=== PATIENT | male | born 1965 | race Caucasian/White ===

== ENCOUNTER 2020-01-13 09:30 | Inpatient (IN) ==
--- NOTE | 2020-01-13 10:13 | ERNOTE ---
Dyspnea - Date Date of Service: 01/13/20 - General Presenting Symptoms: shortness of breath Time Seen by Provider: 01/13/20 10:12 Source: patient, RN notes reviewed, old records Exam Limitations: no limitations - Immun/Allergies/Home Medications Immunizations: IMMUNIZATION HX Immunizations Up to Date Yes Allergies/Adverse Reactions: Allergies pregabalin [From Lyrica] Allergy (Mild, Verified 01/13/20 09:34) Swelling Home Medications: HOME MEDICATIONS Lisinopril [Zestril] 10 mg PO DAILY 02/04/19 [Last Taken Unknown] metformin 500 mg tablet,extended release 24 hr 1,000 mg PO BID tab 02/05/19 [Last Taken Unknown] turmeric root extract 500 mg capsule 500 mg PO DAILY 02/05/19 [Last Taken Unknown] vitamin B12 500 mcg-folic acid 400 mcg tablet 1 tab PO DAILY 02/05/19 [Last Taken Unknown] clindamycin HCl 300 mg capsule 300 mg PO TID 14 Days #42 cap 09/24/19 [Last Taken Unknown] tramadol 50 mg tablet 50 mg PO Q6H PRN #14 tab 09/30/19 [Last Taken Unknown] levofloxacin 750 mg tablet 750 mg PO DAILY 14 Days #14 tab 11/13/19 [Last Taken Unknown] oxyCODONE HCL [Oxycodone] 5 mg PO Q6H PRN 01/12/20 [Last Taken Unknown] - History of Present Illness Narrative: Nigel is a 54-year-old male who returns to the emergency department with shortness of breath. I saw the patient yesterday. He has been having problems with dyspnea for approximately 4 months. He has been treated for a diabetic ulcer on his left great toe for the past 6 months. He has been on numerous antibiotics. He was most recently prescribed Augmentin and doxycycline, which he stopped taking 12 days ago because he felt that they were making him worse. He reports having an occasional cough. He has not had fevers. His shortness of breath is worse when he lays down flat. He denies any swelling in his lower extremities. He is a former smoker. Yesterday he was found to have an elevated BNP at 8700. His troponin was slightly elevated at 0.098. He also had an elevated d-dimer. CTA chest was done and showed no evidence of pulmonary emboli, but it did show a right middle and lower lobe pneumonia, as well as small bilateral pleural effusions and significant calcification in his coronary arteries. The patient was extremely overwhelmed with this information. He did not wish to be admitted to the hospital yesterday because he had things to take care of before he could do that. He ultimately signed out AMA but stated that he plans to return today for treatment. Associated Symptoms-Dyspnea: Reports: cough. Denies: fever/chills, chest pain/discomfort, leg/calf pain, ankle/leg swelling Prior Treatment: Reports: recently seen Review of Systems - Review of Systems Constitutional: Present: recent illness, fatigue. Absent: fever, chills EYE: Present: no symptoms reported ENT: Present: no symptoms reported Respiratory: Present: shortness of breath, cough, orthopnea Cardiology: Absent: chest pain, edema, claudication Gastrointestinal/Abdominal: Absent: nausea, vomiting, diarrhea, abdominal pain Genitourinary: Absent: dysuria, decreased urinary output Musculoskeletal: Present: no symptoms reported Skin: Absent: rash, lesions Neurological: Absent: headache, dizziness/light-headedness Endocrine: Present: no symptoms reported Hematologic/Lymphatic: Absent: easy bruising, easy bleeding Psych: Present: no symptoms reported 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, with fat layer exposed (Chronic) great toe Diabetes mellitus Onset Date: 2005 Exostosis of toe Hyperlipidemia Onset Date: 2005 Hypertension Onset Date: 1999 Osteomyelitis Polyneuropathy Onset Date: Unknown Smoker Onset Date: 1985 Family History: Family History (Last Reviewed 01/13/20 @ 12:28 by Nay Romano NP) Father Type 2 diabetes mellitus Coronary artery disease Mother Healthy adult Alive and well Grandfather Cancer lung Social History: (Last Reviewed 01/13/20 @ 12:28 by Nay Romano NP) Social History: Marital status: household members: spouse 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[employer]: No Tobacco: Smoking Status: Current some day smoker tobacco type: cigarettes Smoking cigarettes per day: 20.0 Smoking packs per day: 1 Alcohol: alcohol intake: never alcohol intake frequency: a few times a week Substance Use: substance use type: does not use Dietary Habits: caffeine: Yes Type: coffee Physical Exam - Physical Exam General Appearance: Present: wd/wn, alert, other - In no acute distress but appears to not feel well, mild dyspnea at rest Head Exam: Present: normal inspection Eye Exam: Normal inspection: bilateral Neck: Present: normal inspection, nontender, supple, full range of motion Respiratory: Present: no respiratory distress, lungs clear, accessory muscle use - mild dyspnea, expiration (prolonged) Cardiovascular/Chest: Present: regular rate, rhythm, no murmur Extremity Exam: Present: normal inspection, non-tender, normal range of motion, no edema Neurological Exam: Present: alert, oriented, normal mood/affect, no motor/sensory deficits Skin Exam: Present: warm/dry, pallor, other - Nearly healed wound to left great toe Progress - Results and Orders Patient's Lab Results:: I have reviewed the patient's lab results. - Vital Signs Patient's Vital Signs:: I have reviewed the patient's vital signs. Vital Signs: Vital Signs 01/13/20 09:44 Temperature 35.7 C L Pulse Rate 101 H Respiratory Rate 20 Blood Pressure 115/83 O2 Sat by Pulse Oximetry 96 - EKG EKG #1 EKG: NSR, unchanged from - 01/12/20 EKG read: Reviewed by me - Progress/Reassessment Chief Complaint: Dyspnea Progress:: Unchanged Plan - Plan Plan: Troponin has slightly increased since yesterday from 0.098 to 0.108. EKG is unchanged. B[place] 3700 [place] 27332. His WBC and lactic acid are n ormal. Along with his prolonged treatment with multiple antibiotics for his toe, a bacterial pneumonia would be unlikely but blood cultures are pending. The patient is afebrile without any significant cough. He is negative for COVID-19. Dr. Chacko was contacted and agreed to admit the patient to observation. Lasix 40 mg IV ordered prior to transfer to med/surg. The patient is in agreement with staying in the hospital. Departure Clinical Impression: New onset of congestive heart failure Pneumonia Qualifiers: Pneumonia type: due to unspecified organism Laterality: right Lung location: unspecified part of lung Qualified Code(s): J18.9 - Pneumonia, unspecified organism - Departure Disposition: Still a patient Condition: Stable
[2020-01-13 10:55] LABS: Hematocrit 43.5 % (42.0-52.0); Hemoglobin 14.1 gm/dL (13.5-18.0); Mean Cell Volume 94.4 fl (78-100); Mean Corpuscular Hemoglobin 30.6 pg (27-31); Mean Corpuscular Hgb Conc 32.4 g/dl (32-36); Mean Platelet Volume 11.6 fl (8-11.3); Neutrophil # 6.1 K/mm3 (1.3-6.0); Neutrophil % 66.3 % (42-75.0); Platelet Count 217 K/mm3 (150-450); Red Blood Count 4.61 M/mm3 (4.7-6.0); Red Cell Distribution Width 16.4 % (11.5-14.0); White Blood Count 9.2 K/mm3 (4.0-10.5)
[2020-01-13 11:08] LABS: Albumin * 3.2 gm/dl (3.4-5.0); Anion Gap 16.3 mmol/L (6.8-13.8); Bilirubin, Total 0.5 mg/dL (0.0-1.1); Ca. Corrected For Albumin 9.2 mg/dL (8.4-10.2); Calcium * 8.9 mg/dL (7.9-10.9); Carbon Dioxide 21.2 mmol/L (24-32.6); Potassium 3.5 mmol/L (3.4-4.6); Total Protein 7.8 gm/dL (6.2-8.2); Troponin I 0.108 ng/mL (0.00-0.10)
[2020-01-13] MEDS ORDERED: FUROSEMIDE 10 MG/ML VIAL IV ONE ×2 (11:59→18:00)
[2020-01-13] MEDS: oxyCODONE HCL 5 MG TABLET PO PRN (21:00)
[2020-01-14] MEDS ORDERED: DILTIAZEM HCL 5 MG/ML VIAL IV ONE ×2 (06:05→08:10)
--- NOTE | 2020-01-14 08:29 | HP ---
Chief Complaint - Chief Complaint Date of Service: 01/13/20 Time of Service: 13:15 Chief Complaint: Shortness of breath History of Present Illness: Zenon is a 54 yo male who presented to the [facility] ER with shortness of breath. He reports shortness of breath present for 4 months but gradually getting worse. Shortness of breath is worse with laying down. He reports minimal lower extremity edema. He has a history of uncontrolled diabetes Type 2 with diabetic neuropathy and diabetic foot ulcers. He has been treated by wound clinic and podiatry with numerous antibiotics over the past few months. He reports his last antibiotic was 2 weeks ago. He reports he feet are currently doing well and wounds have healed. He denies chest pain, fever, chills, nausea, or vomiting. 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, with fat layer exposed (Chronic) great toe Diabetes mellitus Onset Date: 2005 Exostosis of toe Hyperlipidemia Onset Date: 2005 Hypertension Onset Date: 1999 Osteomyelitis Polyneuropathy Onset Date: Unknown Smoker Onset Date: 1985 Family History: Family History (Last Reviewed 01/13/20 @ 12:28 by Nay Romano NP) Father Type 2 diabetes mellitus Coronary artery disease Mother Healthy adult Alive and well Grandfather Cancer lung Social History: (Last Reviewed 01/13/20 @ 12:28 by Nay Romano NP) Social History: Marital status: household members: spouse 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[employer] Service: No Tobacco: Smoking Status: Current some day smoker tobacco type: cigarettes Smoking cigarettes per day: 20.0 Smoking packs per day: 1 Alcohol: alcohol intake: never alcohol intake frequency: a few times a week Substance Use: substance use type: does not use Dietary Habits: caffeine: Yes Type: coffee Review Of Systems (GEN) - Review of Systems Generalized/Overall Review: Absent: Weakness, Chills, Fever EENTM: Present: No Symptoms Reported Respiratory: Present: Cough, Shortness of Breath, Orthopnea, Wheezing Cardiac: Present: Edema. Absent: Chest Pain, Palpitations, Syncope Abdominal: Absent: Nausea, Vomiting Genitourinary: Absent: Burning, Itching, Urgency Musculoskeletal: Absent: Joint Pain, Back Pain Neurological: Absent: Headache, Anxiety Skin: Absent: Lesions, Rash Immunizations: IMMUNIZATION HX Immunizations Up to Date Yes Allergies/Adverse Reactions: Allergies Allergy/AdvReac Type Severity Reaction Status Date / Time pregabalin [From Lyrica] Allergy Mild Swelling Verified 01/13/20 09:34 Home Medications: HOME MEDICATIONS Lisinopril [Zestril] 10 mg PO DAILY 02/04/19 [Last Taken Unknown] metformin 500 mg tablet,extended release 24 hr 1,000 mg PO BID tab 02/05/19 [Last Taken Unknown] turmeric root extract 500 mg capsule 500 mg PO DAILY 02/05/19 [Last Taken Unknown] vitamin B12 500 mcg-folic acid 400 mcg tablet 1 tab PO DAILY 02/05/19 [Last Taken Unknown] Exam - Exam Vital Signs: Vital Signs - Last Taken Selected Entries 01/13/20 12:20 Temperature 36.4 C Pulse Rate 102 H Respiratory Rate 16 Blood Pressure 126/95 H O2 Sat by Pulse Oximetry 97 Oxygen Delivery Method Room Air Constitutional: Present: Alert, Oriented x3, Cooperative ENT Exam: Present: hearing grossly normal Eye Exam: bilateral eye: normal inspection Respiratory: Present: no respiratory distress, crackles Cardiovascular/Chest: Present: regular rate, rhythm, no edema, no murmur Peripheral Pulses: radial (R): 2+, radial (L): 2+ Abdomen: Present: Normal bowel sounds, soft, nontender, nondistended Extremity: Present: normal inspection Skin Exam: Present: normal color, warm/dry, no cyanosis Appearance: Present: appropriate appearance, appropriate insight Eye contact: Present: cooperative, good eye contact, normal speech Thoughts: Present: normal thought pattern, no apparent hallucination Diagnostic Studies: Abnormal Lab Results 01/13/20 01/13/20 Range/Units 10:40 10:40 RBC 4.61 L (4.7-6.0) M/mm3 RDW 16.4 H (11.5-14.0) % MPV 11.6 H (8-11.3) fl Neutrophils # 6.1 H (1.3-6.0) K/mm3 Carbon Dioxide 21.2 L (24-32.6) mmol/L Anion Gap 16.3 H (6.8-13.8) mmol/L Random Glucose 170 H (70-110) mg/dL Troponin I 0.108 H (0.00-0.10) ng/mL B-Natriuretic Peptide 03433 H (5-140) pg/mL Albumin 3.2 L (3.4-5.0) gm/dl Laboratory Results WBC 9.2 K/mm3 (4.0-10.5) 01/13/20 10:40 RBC 4.61 M/mm3 (4.7-6.0) L 01/13/20 10:40 Hgb 14.1 gm/dL (13.5-18.0) 01/13/20 10:40 Hct 43.5 % (42.0-52.0) 01/13/20 10:40 MCV 94.4 fl (78-100) 01/13/20 10:40 MCH 30.6 pg (27-31) 01/13/20 10:40 MCHC 32.4 g/dl (32-36) 01/13/20 10:40 RDW 16.4 % (11.5-14.0) H 01/13/20 10:40 Plt Count 217 K/mm3 (150-450) 01/13/20 10:40 MPV 11.6 fl (8-11.3) H 01/13/20 10:40 Immature Gran % (Auto) 0.30 % (0.001-0.429) 01/13/20 10:40 Immature Gran # (Auto) 0.03 K/mm3 (0.000-0.0310) 01/13/20 10:40 Neutrophils % 66.3 % (42-75.0) 01/13/20 10:40 Lymphocytes % 25.2 % (20-51) 01/13/20 10:40 Monocytes % 6.0 % (0.0-9) 01/13/20 10:40 Eosinophils % 1.7 % (0.0-3.0) 01/13/20 10:40 Basophils % 0.5 % (0.0-1.0) 01/13/20 10:40 Nucleated RBC % 0.0 k/mm3 (0-1) 01/13/20 10:40 Neutrophils # 6.1 K/mm3 (1.3-6.0) H 01/13/20 10:40 Lymphocytes # 2.31 k/mm3 (1.5-3.5) 01/13/20 10:40 Monocytes # 0.6 k/mm3 (0.0-1.0) 01/13/20 10:40 Eosinophils # 0.2 k/mm3 (0.0-0.7) 01/13/20 10:40 Absolute Basophils 0.1 k/mm3 (0.0-0.1) 01/13/20 10:40 Sodium 138 mmol/L (132-142) 01/13/20 10:40 Plasma Sodium 139 mmol/L (130-142) 01/13/20 10:40 Potassium 3.5 mmol/L (3.4-4.6) 01/13/20 10:40 Chloride 104 mmol/L (97-106) 01/13/20 10:40 Carbon Dioxide 21.2 mmol/L (24-32.6) L 01/13/20 10:40 Anion Gap 16.3 mmol/L (6.8-13.8) H 01/13/20 10:40 BUN 15 mg/dL (6-23) 01/13/20 10:40 Creatinine 1.00 mg/dL (0.4-1.4) 01/13/20 10:40 Est GFR (Non-Af Amer) 83 mL/min (60-130) 01/13/20 10:40 BUN/Creatinine Ratio 15.0 (9.0-21.6) 01/13/20 10:40 Random Glucose 170 mg/dL (70-110) H 01/13/20 10:40 Lactic Acid, Venous 1.6 mmol/L (0.4-2.0) 01/13/20 10:40 Calcium 8.9 mg/dL (7.9-10.9) 01/13/20 10:40 Calcium Adj for Albumin 9.2 mg/dL (8.4-10.2) 01/13/20 10:40 Total Bilirubin 0.5 mg/dL (0.0-1.1) 01/13/20 10:40 AST 25 U/L (0-48) 01/13/20 10:40 ALT 30 U/L (19-67) 01/13/20 10:40 Alkaline Phosphatase 74 U/L (50-170) 01/13/20 10:40 Troponin I 0.108 ng/mL (0.00-0.10) H 01/13/20 10:40 B-Natriuretic Peptide 25103 pg/mL (5-140) H 01/13/20 10:40 Total Protein 7.8 gm/dL (6.2-8.2) 01/13/20 10:40 Albumin 3.2 gm/dl (3.4-5.0) L 01/13/20 10:40 SARS-CoV-2 (PCR) Not detected (NotDetected) 01/13/20 Unknown Assessment/Plan - Narrative Narrative: Zenon is a 54 yo male to be admitted for shortness of breath that I suspect to be related to Acute CHF. He does not have a history of CHF. BNP is 11,000 and chest imaging done yesterday show bilateral effusions. Will treat with IV lasix 40mg. Will repeat chest xray after diuresis. He is not needing oxygen on admission, will admit to observation. Plan to discharge after one midnight following diuresis if he is improved. He does not have fever, leukocytosis to suggest pneumonia. Will not start antibiotics at this time as I am not convinced of a pneumonia. If there is more evidence of pneumonia he may need strong coverage for antibiotics due to his history of recent numerous antibiotics used to treat diabetic foot ulcer. - Assessment/Plan (1) Acute CHF Problem: Acute Qualifiers: Heart failure type: unspecified Qualified Code(s): I50.9 - Heart failure, unspecified (2) Diabetes mellitus type 2 in nonobese Problem: Acute
[2020-01-14 08:37] LABS: Hematocrit 43.9 % (42.0-52.0); Hemoglobin 14.1 gm/dL (13.5-18.0); Mean Cell Volume 93.2 fl (78-100); Mean Corpuscular Hemoglobin 29.9 pg (27-31); Mean Corpuscular Hgb Conc 32.1 g/dl (32-36); Neutrophil # 5.8 K/mm3 (1.3-6.0); Platelet Count 213 K/mm3 (150-450); Red Blood Count 4.71 M/mm3 (4.7-6.0); Red Cell Distribution Width 16.1 % (11.5-14.0); White Blood Count 8.9 K/mm3 (4.0-10.5)
[2020-01-14] MEDS ORDERED: AMIODARONE HCL 150 MG/100 ML PIGGYBACK IV ONE (08:40)
[2020-01-14] MEDS ORDERED: AMIODARONE HCL 900 MG in DEXTROSE 5 % IN WATER 500 ML IV SCH ×2 (08:41)
[2020-01-14] MEDS ORDERED: LISINOPRIL 10 MG TABLET PO SCH (09:00)
[2020-01-14 09:20] LABS: Albumin * 2.9 gm/dl (3.4-5.0); Anion Gap 14.6 mmol/L (6.8-13.8); BUN/Creatinine Ratio 13.2 (9.0-21.6); Bilirubin, Total 0.7 mg/dL (0.0-1.1); Ca. Corrected For Albumin 9.4 mg/dL (8.4-10.2); Calcium * 8.8 mg/dL (7.9-10.9); Carbon Dioxide 23.8 mmol/L (24-32.6); Potassium 3.4 mmol/L (3.4-4.6); TSH * 3.209 uIU/mL (0.358-3.74); Total Protein 7.3 gm/dL (6.2-8.2)
[2020-01-14 09:32] LABS: Troponin I 0.088 ng/mL (0.00-0.10)
[2020-01-14] MEDS ORDERED: NORMAL SALINE 500 ML IV PRN (10:38)
[2020-01-14] MEDS: oxyCODONE HCL 5 MG TABLET PO PRN ×2 (11:07→20:12)
[2020-01-14] MEDS ORDERED: METOPROLOL TARTRATE 1 MG/ML AMPUL IV ONE (12:42)
[2020-01-14] MEDS ORDERED: NORMAL SALINE 250 ML IV PRN (13:50)
[2020-01-14] MEDS: CARVEDILOL 3.125 MG TABLET PO SCH ×2 (20:14→21:51)
[2020-01-14] MEDS ORDERED: METOPROLOL TARTRATE 25 MG TABLET PO SCH (21:00)
[2020-01-14] MEDS ORDERED: ENOXAPARIN SODIUM 40 MG/0.4 ML SYRG SC SCH (22:45)
--- NOTE | 2020-01-14 23:15 | PN ---
Subjective - Date and Time Seen Date: 01/14/20 Time: 08:30 Subjective Narrative: Nigel reports feeling the best he has in the last few months. He denies chest pain, shortness of breath, or swelling. He would like to go home. He feels not racing heart, palpitations, or skipped beats. This morning at about 6am he went into atrial fibrillation with RVR with rate up to 150. He has no history of afib. He was given IV diltiazem at 15mg IV without any effect, he was then given 20mg IV diltiazem without effect on heart rate or blood pressure. He was then given IV amiodarone push and drip but this did not seem to make any improvement either. He was given 500NS bolus as his blood pressure was low normal and the thought that maybe he had been over diuresed. This did not seem to effect his heart rate either. He was then given 5mg IV metoprolol and shortly after converted to normal sinus with a rate near 80. He had an echo that showed 20% EF. Objective - Vitals Vitals: Last Vital Signs Temp 36.4 C 01/14/20 21:46 Pulse 90 01/14/20 21:51 Resp 24 H 01/14/20 21:46 BP 115/58 01/14/20 21:51 Pulse Ox 96 01/14/20 21:46 - Abnormal Lab Findings Abnormal Lab Findings: Abnormal Lab Results 01/14/20 01/14/20 Range/Units 08:30 08:30 RDW 16.1 H (11.5-14.0) % Carbon Dioxide 23.8 L (24-32.6) mmol/L Anion Gap 14.6 H (6.8-13.8) mmol/L Random Glucose 169 H (70-110) mg/dL Albumin 2.9 L (3.4-5.0) gm/dl - Exam Constitutional: Present: Alert, Oriented x3, Cooperative, No distress ENT Exam: Present: hearing grossly normal Respiratory: Present: lungs clear, normal breath sounds, no respiratory distress Cardiovascular/Chest: Present: no edema, no murmur Abdomen: Present: Normal bowel sounds, soft, nontender, nondistended Extremity: Present: normal inspection Skin Exam: Present: normal color, warm/dry, no cyanosis Appearance: Present: appropriate appearance, appropriate insight Eye contact: Present: cooperative, good eye contact, normal speech Thoughts: Present: normal thought pattern, no apparent hallucination Assessment/Plan Plan Narrative: New onset atrial fibrillation with RVR. Appeared to convert to sinus rhythm with fluids and IV metoprolol. Will monitor, unknown if this is paroxysmal or a first episode. Echocardiogram today showed EF 20%. Will start low dose coreg at 3.125mg BID. Will need to be cautious with blood pressure as it has been low today, but improved with IV fluids. Will decrease lisinopril to 5mg daily. He will need to follow up with cardiology. He was made inpatient today due to atrial fibrillation with RVR and brief period of acute respiratory failure where he required 2lpm of oxygen due to hypoxia. This resolved and he was weaned from oxygen. May be able to discharge to home tomorrow if remains in sinus rhythm, stays off oxygen, and blood pressure remains stable. - Problems/Diagnosis (1) Acute CHF Problem: Acute Qualifiers: Heart failure type: systolic Qualified Code(s): I50.21 - Acute systolic (congestive) heart failure (2) Atrial fibrillation with RVR Problem: Acute (3) Acute respiratory failure with hypoxia Problem: Acute (4) Diabetes mellitus type 2 in nonobese Problem: Acute
[2020-01-15] MEDS: oxyCODONE HCL 5 MG TABLET PO PRN (06:41)
[2020-01-15] MEDS: CARVEDILOL 3.125 MG TABLET PO SCH (08:13)
[2020-01-15] MEDS: LISINOPRIL 5 MG TABLET PO SCH ×2 (08:15→09:38)
--- NOTE | 2020-01-15 11:37 | DS ---
(1) Acute CHF Problem: Acute Qualifiers: Heart failure type: systolic Qualified Code(s): I50.21 - Acute systolic (congestive) heart failure (2) Atrial fibrillation with RVR Problem: Resolved (3) Acute respiratory failure with hypoxia Problem: Resolved (4) Diabetes mellitus type 2 in nonobese Problem: Acute Date of Discharge:: 01/15/20 Hospital Course: Zenon is a 54yo male that was admitted for shortness of breath that was suspected to be secondary to heart failure based on BNP of 11,000, ortho pnea, and bilateral pleural effusions. He was successfully diuresed about 5lbs of fluid overnight. His initials vitals were normal but he did have a brief period of hypoxia over the first night that required oxygen temporarily. He was weaned off oxygen. Over the next morning he developed atrial fibrillation with RVR and was treated initially with IV diltiazem 15mg which had no effect on his heart rate or blood pressure, he was then given 20mg IV Diltiazem which also had no effect. He was given IV amiodarone bolus with drip and this also did not have much effect. It was thought that maybe he had been diuresed too much and was given a 500ml bolus of normal saline and was then give IV metoprolol 5mg. Shortly after he converted to sinus rhythm but began having hypotension from the metoprolol. He was given an additional bolus of 250ml and blood pressure improved. He had echocardiogram that showed EF of 20%. He was started on Coreg 3.125mg BID for heart failure but low dose to minimize hypotension. His lisinopril dose was decreased from 10mg to 5mg. During his episode of atrial fibrillation with RVR and episodes of hypotension he remained asymptomatic throughout. He is feeling great today and has no symptoms. He will be discharged to home and will follow up with Cardiology. Procedures Performed: none Results and Findings: Pending Mircobiology Results 01/13/20 11:15 Blood Blood Culture - Preliminary NO GROWTH 24 HOURS 01/13/20 10:40 Blood Blood Culture - Preliminary NO GROWTH 24 HOURS Lab Pending Results 01/13/20 10:40: WBC 9.2, RBC 4.61 L, Hgb 14.1, Hct 43.5, MCV 94.4, MCH 30.6, MCHC 32.4, RDW 16.4 H, Plt Count 217, MPV 11.6 H, Immature Gran % (Auto) 0.30, Immature Gran # (Auto) 0.03, Neutrophils % 66.3, Lymphocytes % 25.2, Monocytes % 6.0, Eosinophils % 1.7, Basophils % 0.5, Nucleated RBC % 0.0, Neutrophils # 6.1 H, Lymphocytes # 2.31, Monocytes # 0.6, Eosinophils # 0.2, Absolute Basophils 0.1 01/13/20 10:40: Sodium 138, Plasma Sodium 139, Potassium 3.5, Chloride 104, Carbon Dioxide 21.2 L, Anion Gap 16.3 H, BUN 15, Creatinine 1.00, Est GFR (Non- Af Amer) 83, BUN/Creatinine Ratio 15.0, Random Glucose 170 H, Calcium 8.9, Calcium Adj for Albumin 9.2, Total Bilirubin 0.5, AST 25, ALT 30, Alkaline Phosphatase 74, Troponin I 0.108 H, B-Natriuretic Peptide 07293 H, Total Protein 7.8, Albumin 3.2 L 01/13/20 10:40: Lactic Acid, Venous 1.6 01/13/20 : SARS-CoV-2 (PCR) Not detected 01/14/20 08:30: WBC 8.9, RBC 4.71, Hgb 14.1, Hct 43.9, MCV 93.2, MCH 29.9, MCHC 32.1, RDW 16.1 H, Plt Count 213, MPV 11.0, Immature Gran % (Auto) 0.20, Immature Gran # (Auto) 0.02, Neutrophils % 65.0, Lymphocytes % 25.6, Monocytes % 6.2, Eosinophils % 2.3, Basophils % 0.7, Nucleated RBC % 0.0, Neutrophils # 5.8, Lymphocytes # 2.27, Monocytes # 0.6, Eosinophils # 0.2, Absolute Basophils 0.1 01/14/20 08:30: Sodium 138, Plasma Sodium 139, Potassium 3.4, Chloride 103, Carbon Dioxide 23.8 L, Anion Gap 14.6 H, BUN 12, Creatinine 0.91, Est GFR (Non- Af Amer) 92, BUN/Creatinine Ratio 13.2, Random Glucose 169 H, Calcium 8.8, Calcium Adj for Albumin 9.4, Total Bilirubin 0.7, AST 28, ALT 29, Alkaline Phosphatase 67, Troponin I 0.088, Total Protein 7.3, Albumin 2.9 L, TSH 3.209 Discharge Location: Home Disposition: Home self-care Condition: Stable Discharge Activity: Activity as tolerated Discharge Diet: Low salt Referrals: Bob Navarro MD [Associate] - One Week (Next available for Systolic Heart Failure) Julian Chacko DO [Staff Physician] - One Week Problem Oriented Discharge Instructions to Patient/Family: CHF Patient Instructions Prescriptions (Any new or edited meds): Carvedilol [Coreg] 3.125 mg PO BID #60 tab Transmission Status: Pending to [place], [place] Lisinopril [Zestril] 5 mg PO DAILY #30 tab Transmission Status: Pending to [place], [place] Complete Home Medications List: Complete Home Medication List: metformin 500 mg tablet,extended release 24 hr 500 mg PO BID tab 02/05/19 turmeric root extract 500 mg capsule 500 mg PO DAILY 02/05/19 vitamin B12 500 mcg-folic acid 400 mcg tablet 1 tab PO DAILY 02/05/19 Carvedilol [Coreg] 3.125 mg PO BID #60 tab 01/15/20 Lisinopril [Zestril] 5 mg PO DAILY #30 tab 01/15/20 Forms: Patient Portal Registration
[2020-01-15 13:29] VITALS: BP 88/66
--- NOTE | 2020-01-20 10:08 | ECHO ---
This report is available in the EMR
== END 2020-01-15 13:29 | disposition home or self-care (01) | DRG 291 ==
LOC: ER 09:30 → MS 09:30 → OBSVTOIN 12:03 → MS 12:25
PROVIDERS: ADMIT Family Medicine; ATTEND Family Medicine
DX: Z79.84 Long term (current) use of oral hypoglycemic drugs; J96.01 Acute respiratory failure with hypoxia; I50.21 Acute systolic (congestive) heart failure; E11.40 Type 2 diabetes mellitus with diabetic neuropathy, unspecified; I48.91 Unspecified atrial fibrillation; Z87.891 Personal history of nicotine dependence